=== PATIENT | male | born 1995 | race Caucasian/White ===

== ENCOUNTER 2016-11-12 00:10 | Emergency (ER) | payer OTHER ==
[~2016-11-12] VITALS: Ht 177.8 cm; Wt 99.8 kg
[2016-11-12] MEDS ORDERED: IV NORMAL SALINE 1000 ML BAG IV ONE (00:30)
[2016-11-12] MEDS ORDERED: ONDANSETRON 4 MG/2 ML VIAL IV ONE (00:30)
[2016-11-12 00:47] LABS: BASOPHILS # (AUTO) 0.1 K/uL (0.0-0.2); BASOPHILS % (AUTO) 0.6 % (0.0-2.0); EOSINOPHILS # (AUTO) 0.2 K/uL (0.0-0.7); EOSINOPHILS % (AUTO) 1.8 % (0.0-7.0); HEMATOCRIT 37.4 % (40.0-50.0); HEMOGLOBIN 12.8 g/dL (14.0-18.0); LYMPHOCYTES # (AUTO) 4.9 K/uL (0.8-4.8); LYMPHOCYTES % (AUTO) 40.8 % (20.5-51.5); MEAN CORPUSCULAR HEMOGLOBIN 28.1 uug (27.0-31.0); MEAN CORPUSCULAR HGB CONC 34 g/dL (32.0-37.0); MEAN CORPUSCULAR VOLUME 82.2 fL (82.0-92.0); MONOCYTES # (AUTO) 1.5 K/uL (0.1-1.30); MONOCYTES % (AUTO) 12.5 % (0.0-11.0); NEUTROPHILS # (AUTO) 5.3 K/uL (1.8-8.9); NEUTROPHILS % (AUTO) 44.3 % (38.5-71.5); PLATELET COUNT (AUTO) 310 K/uL (150-450); RED BLOOD CELL COUNT(AUTO) 4.55 MIL/uL (4.70-6.10); RED CELL DISTRIBUTION WIDTH 12.8 % (11.5-14.5)
[2016-11-12 01:02] LABS: THYROID STIMULATING HORMONE 1.371 mIU/mL (0.358-3.740)
[2016-11-12 01:03] LABS: ALANINE AMINOTRANSFERASE 23 U/L (16-63); ALBUMIN 3.7 g/dL (3.4-5.0); ALKALINE PHOSPHATASE 62 U/L (50-136); ASPARTATE AMINOTRANSFERASE 14 U/L (15-37); BILIRUBIN,DIRECT 0.1 mg/dL (0.0-0.2); BILIRUBIN,TOTAL 0.3 mg/dL (0.2-1.0); CALCIUM 8.3 mg/dL (8.5-10.1); CARBON DIOXIDE 25 mmol/L (21-32); CHLORIDE 106 mmol/L (98-107); CREATININE 0.7 mg/dL (0.6-1.3); GFR > 130 mL/min (>60); GLUCOSE 103 mg/dL (74-106); POTASSIUM 3.5 mmol/L (3.5-5.1); SODIUM SERUM 141 mmol/L (136-145); TOTAL PROTEIN, SERUM 7.2 g/dL (6.4-8.2); UREA NITROGEN, BLOOD 9 mg/dL (7-18)
[2016-11-12 01:07] LABS: ACETAMINOPHEN < 2.0 ug/mL (10-30)
[2016-11-12 01:08] LABS: ETHANOL 340 MG/DL (0-0)
--- NOTE | 2016-11-12 01:15 | NUR ---
Patient BIB [facility] for ETOH intoxication. Patient was discovered sleeping on a [employer] bus and when initially discovered he stated that he had consumed alcohol and benzodiazepines. Patient is un-responsive to voice and touch. Patient is responsive to pain stimulus and when awake can answer questions. To room 3A.
--- NOTE | 2016-11-12 01:16 | NUR ---
Patient arrived without C-Spine precautions. Patient placed in a hard C-collar per ERMD.
[2016-11-12 01:20] LABS: *BILIRUBIN,URIN NEGATIVE (NEGATIVE); *BLOOD, URINE NEGATIVE (NEGATIVE); *CLARITY,URINE CLEAR (CLEAR); *COLOR,URINE STRAW (YELLOW); *KETONES,URINE NEGATIVE (NEGATIVE); *PROTEIN,URINE NEGATIVE (NEGATIVE); *UROBILINOGEN,URINE 0.2 E.U./dl (NORMAL); LEUKOCYTE ESTERASE ,URINE NEGATIVE (NEGATIVE); NITRITE, URINE NEGATIVE (NEGATIVE); UGLUCOSE NEGATIVE (NEGATIVE)
[2016-11-12] MEDS ORDERED: ONDANSETRON 4 MG/2 ML VIAL ONE (01:25)
[2016-11-12 01:27] LABS: BACTERIA,URINE FEW /HPF (NONE SEEN); RBC,URINE NONE SEEN /HPF (0-3); SQUAMOUS EPITHELIAL CELL,UR FEW /HPF (NONE SEEN); WBC,URINE 0-3 /HPF (0-3)
[2016-11-12 01:31] LABS: *AMPHETAMINE, URINE NEGATIVE (NEGATIVE); *BARBITURATE, URINE NEGATIVE (NEGATIVE); *CANNABINOID, URINE NEGATIVE (NEGATIVE); *COCCAINE, URINE NEGATIVE (NEGATIVE); *OPIATE, URINE NEGATIVE (NEGATIVE); *PHENCYCLIDINE SCREEN,URINE NEGATIVE (NEGATIVE)
--- NOTE | 2016-11-12 02:01 | NUR ---
Patient is resting comfortably in bed with eyes closed
--- NOTE | 2016-11-12 03:00 | NUR ---
Patient is resting comfortably in bed with eyes closed
--- NOTE | 2016-11-12 04:19 | NUR ---
Patient is resting comfortably in bed with eyes closed
--- NOTE | 2016-11-12 04:52 | NUR ---
C-spine cleared by Dr. Conti. Collar removed.
--- NOTE | 2016-11-12 08:01 | NUR ---
pt sleeping comfortably in bed, nad noted. breakfast provided, but pt is too lethergic to eat.
--- NOTE | 2016-11-12 08:48 | NUR ---
pt is awake a/o x3, pt states he is not homeless and leaves w/ afriend. eating breakfast.
--- NOTE | 2016-11-12 09:37 | NUR ---
Patient discharged to home in stable conditon. Written and verbal after care instructions given. Patient verbalizes understanding of instructions.
--- NOTE | 2016-11-12 09:37 | NUR ---
IV removed. Catheter intact and site benign. Pressure and 4x4 gauze applied to site. No bleeding noted.
[2016-11-12 09:38] VITALS: BP 105/63
== END 2016-11-12 09:39 | disposition home or self-care (01) ==
LOC: ER 00:14
DX: R40.20 Unspecified coma (principal); F10.121 Alcohol abuse with intoxication delirium; F19.10 Other psychoactive substance abuse, uncomplicated
CPT/HCPCS: 36415; 51702; 70450; 71010; 72125; 80307; 84443; 85025; 85730; 93005; A4663; G0480-TC; G6040-TC; J2405; J7030

== ENCOUNTER 2016-12-22 02:58 | Emergency (ER) | payer MEDICAID, OTHER ==
[~2016-12-22] VITALS: Ht 182.9 cm; Wt 81.6 kg
--- NOTE | 2016-12-22 03:09 | NUR ---
PT [facility] ACCOMPANIED BY [employer].ACCORDING TO PARAMEDICS PT STATED WANTED TO HURT SELF.AWAKE AND ALERT AND ANSWERING QUESTIONS.DENIES PAIN. NO RESP DISTRESS NOTED OR REPORTED UPON ASSESSMENT... MD AT BEDSIDE... RN TO MONITOR FOR PAIN, SAFETY AND COMFORT...
[2016-12-22] MEDS ORDERED: ONDANSETRON ODT 4 MG TAB.RAPDIS SL ONE (03:15)
[2016-12-22] MEDS ORDERED: CELEXA (03:19)
[2016-12-22] MEDS ORDERED: QUET25TA3 (03:19)
[2016-12-22 03:38] LABS: BASOPHILS # (AUTO) 0.1 K/uL (0.0-8.0); BASOPHILS % (AUTO) 1.1 % (0.0-2.0); EOSINOPHILS # (AUTO) 0.2 K/uL (0.0-0.7); EOSINOPHILS % (AUTO) 3.5 % (0.0-7.0); HEMATOCRIT 44.7 % (36.7-47.1); HEMOGLOBIN 15.4 g/dL (12.5-16.3); LYMPHOCYTES # (AUTO) 3.9 K/uL (20.0-40.0); LYMPHOCYTES % (AUTO) 64.9 % (20.5-51.5); MEAN CORPUSCULAR HEMOGLOBIN 28.8 uug (23.8-33.4); MEAN CORPUSCULAR HGB CONC 35 g/dL (32.5-36.3); MEAN CORPUSCULAR VOLUME 83.6 fL (73.0-96.2); MONOCYTES # (AUTO) 0.4 K/uL (2.0-10.0); MONOCYTES % (AUTO) 6.7 % (0.0-11.0); NEUTROPHILS # (AUTO) 1.5 K/uL (1.8-8.9); NEUTROPHILS % (AUTO) 23.8 % (38.5-71.5); PLATELET COUNT (AUTO) 251 K/uL (152-348); RED BLOOD CELL COUNT(AUTO) 5.35 MIL/uL (4.06-5.63); RED CELL DISTRIBUTION WIDTH 13.4 % (12.1-16.2); WHITE BLOOD COUNT (AUTO) 6.1 K/uL (3.6-10.2)
[2016-12-22 03:40] LABS: *AMPHETAMINE, URINE NEGATIVE (NEGATIVE); *BARBITURATE, URINE NEGATIVE (NEGATIVE); *CANNABINOID, URINE NEGATIVE (NEGATIVE); *COCCAINE, URINE NEGATIVE (NEGATIVE); *OPIATE, URINE NEGATIVE (NEGATIVE); *PHENCYCLIDINE SCREEN,URINE NEGATIVE (NEGATIVE)
[2016-12-22 03:43] LABS: ETHANOL 220 MG/DL (0-0)
[2016-12-22 03:45] LABS: ALANINE AMINOTRANSFERASE 32 U/L (16-63); ALBUMIN 4.3 g/dL (3.4-5.0); ALKALINE PHOSPHATASE 66 U/L (50-136); ASPARTATE AMINOTRANSFERASE 24 U/L (15-37); BILIRUBIN,DIRECT 0.1 mg/dL (0.0-0.2); BILIRUBIN,TOTAL 0.3 mg/dL (0.2-1.0); CALCIUM 8.7 mg/dL (8.5-10.1); CHLORIDE 107 mmol/L (98-107); CREATININE 0.9 mg/dL (0.6-1.3); GFR 106 mL/min (>60); GLUCOSE 91 mg/dL (74-106); SODIUM SERUM 148 mmol/L (136-145); TOTAL PROTEIN, SERUM 7.9 g/dL (6.4-8.2); UREA NITROGEN, BLOOD 9 mg/dL (7-18)
--- NOTE | 2016-12-22 03:45 | NUR ---
PT REQUESTING FOOD, PROVIDED PT WITH SANDWICH AND JUICE....
[2016-12-22 03:59] LABS: ACETAMINOPHEN < 2.0 ug/mL (10-30); CARBON DIOXIDE 33 mmol/L (21-32)
--- NOTE | 2016-12-22 04:30 | NUR ---
PT SLEEPING, AROUSABLE TO NAME, PT REQUESTING WATER, WATER PROVIDED... WILL CONTINUE TO MONITOR FOR SAFETY, AND COMFORT...
--- NOTE | 2016-12-22 05:15 | NUR ---
PT SLEEPING, AROUSABLE TO NAME, STATES HE DOES NOT NEED ANYTHING JUST WANTING TO SLEEP... WILL CONTINUE TO MONITOR PT...
--- NOTE | 2016-12-22 06:27 | NUR ---
Walked into room, pt awoke, asked if he needed anything, pt states he needs nothing at the moment than returned to sleep... Will continue to monitor pt for safety, and comfort...
--- NOTE | 2016-12-22 07:00 | NUR ---
care endorsed to dayshift nurse...
--- NOTE | 2016-12-22 07:05 | NUR ---
pt is awake and verbally responsive, denies suecidal ideation at this time.
--- NOTE | 2016-12-22 07:15 | NUR ---
Patient is resting comfortably in bed with eyes closed, NAD noted.
--- NOTE | 2016-12-22 07:55 | NUR ---
called [facility] for psych eval, per md order. eta 1 hour.
[2016-12-22] MEDS ORDERED: LORAZEPAM 0.5 MG TABLET PO ONE (08:00)
[2016-12-22] MEDS ORDERED: LORAZEPAM 0.5 MG TABLET ONE (08:09)
--- NOTE | 2016-12-22 08:14 | NUR ---
breakfast served and pt had great appetite finished 100% of tray. denies pain.
--- NOTE | 2016-12-22 08:25 | NUR ---
pt is medically cleared by dr galeas.
--- NOTE | 2016-12-22 09:15 | NUR ---
[facility] from [facility] at the bedside for psych eval.
--- NOTE | 2016-12-22 10:17 | NUR ---
PER VALERIANO PT WILL NOT BE PLACED ON 5150 HOLD.
--- NOTE | 2016-12-22 10:18 | NUR ---
PT IS ACCEPTTED AT [facility] ADMIT, PER VALERIANO. PT WILL BE TRANSFERED BY [facility] PER MAXIMILIANO. NUCLEAR PHYSICIAN CLARITZA ALSO NOTIFIED.
--- NOTE | 2016-12-22 10:32 | NUR ---
SBAR REPORT GIVEN TO EM AT [facility]. PT IS AWARE OF TX.
--- NOTE | 2016-12-22 10:51 | NUR ---
Patient discharged in stable conditon. pt is aware, all information given to pt. pt left via taxi.
[2016-12-22 10:55] VITALS: BP 113/70
== END 2016-12-22 10:54 | disposition home or self-care (01) ==
LOC: ER 03:00
DX: F10.129 Alcohol abuse with intoxication, unspecified (principal); F32.9 Major depressive disorder, single episode, unspecified; R45.851 Suicidal ideations; F19.10 Other psychoactive substance abuse, uncomplicated; Z59.0 Homelessness
CPT/HCPCS: 36415; 80307; 85025; A4663; G0480-TC; G6040-TC